=== PATIENT | female | born 1995 | race Two or more races ===

== ENCOUNTER 2019-10-03 14:13 | Emergency (ER) | payer MEDICAID ==
[~2019-10-03] VITALS: Ht 154.9 cm; Wt 68.0 kg
[2019-10-03 14:29] VITALS: BP 115/74
== END 2019-10-03 15:42 | disposition home or self-care (01) ==
LOC: ER 14:13
DX: S93.402A Sprain of unspecified ligament of left ankle, initial encounter (principal); X50.1XXA Overexertion from prolonged static or awkward postures, initial encounter; Y93.89 Activity, other specified; Y92.89 Other specified places as the place of occurrence of the external cause; Y99.8 Other external cause status
CPT/HCPCS: 73610